=== PATIENT | male | born 1990 | race Caucasian/White ===

== ENCOUNTER 2016-08-20 12:08 | Emergency (ER) | payer BC ==
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
[2016-08-20 12:52] VITALS: BP 145/84; PULSE 82; O2SAT 98
[2016-08-20] MEDS ORDERED: Sodium Chloride 0.9% 1000 ML 1,000 ML ONE (13:08)
[2016-08-20] MEDS ORDERED: MORPHINE SULFATE 4 MG INJ IV ONE (13:11)
[2016-08-20] MEDS ORDERED: Zofran 4 MG/2 ML VIAL ONE (13:12)
[2016-08-20] MEDS ORDERED: MORPHINE SULFATE 4 MG INJ ONE (13:12)
[2016-08-20] MEDS ORDERED: Zofran 4 MG/2 ML VIAL IV ONE (13:12)
[2016-08-20] MEDS ORDERED: Sodium Chloride 0.9% 1000 ML 1,000 ML IV SCH (13:30)
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
== END 2016-08-20 13:46 | disposition short-term general hospital (02) ==
LOC: ED 12:08
DX: S12.9XXA Fracture of neck, unspecified, initial encounter (principal); M54.2 Cervicalgia; R51 Headache; V59.9XXA Occupant (driver) (passenger) of pick-up truck or van injured in unspecified traffic accident, initial encounter
CPT/HCPCS: 36000; 72125; 96360; 96374; 96375; 99285; J2270; J2405

== ENCOUNTER 2017-01-15 21:41 | Emergency (ER) | payer BC ==
[2017-01-15 22:10] VITALS: O2SAT 97
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
[2017-01-15 23:52] VITALS: BP 133/74; PULSE 64
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
== END 2017-01-15 23:50 | disposition home or self-care (01) ==
LOC: ED 21:41
DX: R51 Headache (principal); S16.1XXA Strain of muscle, fascia and tendon at neck level, initial encounter; R20.8 Other disturbances of skin sensation; W21.01XA Struck by football, initial encounter; Y93.61 Activity, american tackle football
CPT/HCPCS: 70450; 72125; 99284; L0120